=== PATIENT | female | born 1995 | race Caucasian/White ===

== ENCOUNTER 2019-06-09 06:37 | Day surgery (SDC) | payer BC, OTHER ==
[2019-06-07 18:00] VITALS: BMI 39.7
--- NOTE | 2019-06-08 13:00 | HP ---
Satellite [facility] - Chief Complaint Chief Complaint: right knee pain/instability - Past Medical History Allergies/Adverse Reactions: Allergies Allergy/AdvReac Type Severity Reaction Status Date / Time aspirin Allergy Severe Swelling Verified 06/07/19 17:53 red dye Allergy Verified 06/07/19 17:53 ...LMP: 06/04/19 - Current Medications Current Medications: Home Medications Medication Instructions Recorded Control PO DAILY 06/07/19 Metformin HCl [Glucophage] 500 mg PO BID 06/07/19 Satellite Physical Exam - Physical Examination General Appearance: Well Nourished, Well Developed, Alert & Oriented x3 ENT: Clear Lung: Normal air movement Extremities: Other (right knee- + ttp, decr rom, + sole, + ant draw, + pivot , nvi, MRI +ACL tear, MMT) Neurological: Intact, Alert, Oriented Satellite Impression/Plan - Impression/Plan Impression: right knee acl tear, MMT Operative Procedure: right knee arthroscopy with ACL reconstruction using allograft, PM Date to be Performed: 06/08/19
[2019-06-09] MEDS ORDERED: PROPOFOL 20 ML ONE ×2 (07:20→08:20)
[2019-06-09] MEDS ORDERED: MIDAZOLAM HCL 2 MG/2 ML SINGLE DOSE VIAL ONE ×2 (07:27→07:28)
[2019-06-09] MEDS ORDERED: BUPIVACAINE HCL/PF 0.25% (2.5MG/ML) 10 ML VIAL ONE (07:29)
[2019-06-09] MEDS ORDERED: LIDOCAINE HCL/PF 2% SDV 5ML VIAL ONE (07:33)
[2019-06-09] MEDS ORDERED: BUPIVACAINE HCL/PF 0.5% (5 MG/ML) 30 ML VIAL IJ ONE (07:36)
[2019-06-09] MEDS ORDERED: ceFAZolin SODIUM 1 GM VIAL IVPB ONE (08:20)
[2019-06-09] MEDS ORDERED: ceFAZolin SODIUM 1 GM VIAL ONE (08:27)
[2019-06-09] MEDS ORDERED: DEXAMETHASONE SOD PHOSPHATE 4 MG/1 ML VIAL ONE (08:58)
[2019-06-09] MEDS ORDERED: ONDANSETRON 4 MG/2 ML VIAL IVPUSH PRN (09:07)
[2019-06-09] MEDS ORDERED: oxyCODONE HCL 5 MG TABLET PO PRN ×2 (09:07)
[2019-06-09] MEDS ORDERED: LACTATED RINGERS SOLUTION 1,000 ML IV SCH (09:15)
--- NOTE | 2019-06-09 09:33 | OP ---
Operative Note - Note: Operative Date: 06/09/19 ([facility]) Pre-Operative Diagnosis: right knee internal derangement Operation: right knee arthroscopy with ACL reconstruction using MOISE rosa Post-Operative Diagnosis: Same as Pre-op Surgeon: Jim Kenney Facilities Director: Fausto Pineda Anesthesiologist/EXPELLER OPERATOR: Dank Velásquez Anesthesia: General, Local Specimens Removed: shavings Estimated Blood Loss (mls): 5
[2019-06-09] MEDS ORDERED: oxyCODONE HCL 5 MG TABLET PO ONE (12:05)
[2019-06-09] MEDS ORDERED: oxyCODONE HCL 5 MG TABLET ONE (12:05)
[2019-06-09 12:19] VITALS: TEMP 97.9
[2019-06-09 14:32] VITALS: BP 126/69; PULSE 80
--- NOTE | 2019-06-09 18:58 | OP ---
DATE OF OPERATION: DATE OF DICTATION: 06/09/2019 PREOPERATIVE DIAGNOSIS: Right anterior cruciate ligament tear and medial meniscus tear. POSTOPERATIVE DIAGNOSIS: Right anterior cruciate ligament tear and medial meniscus tear. PROCEDURE: Right anterior cruciate ligament reconstruction with GraftLink allograft and partial medial meniscectomy. SURGICAL ATTENDING: Jim Kenney MD PROVIDER NETWORK MGR: SADIE Subramanian ANESTHESIA: Regional and general. CLOSURE: A GraftLink for ACL, 3-0 nylon for skin. ESTIMATED BLOOD LOSS: Negligible. COMPLICATIONS: None. CONDITION: To recovery in stable condition. DESCRIPTION OF OPERATIVE PROCEDURE: Patient taken to the operating room on June 09, 2019. Regional and general anesthesia was administered by the anesthesiologist. IV Kefzol was administered prophylactically prior to the case. Right lower extremity was prepped and draped in the usual sterile fashion. The superolateral, medial, and infrapatellar portal sites were made with 15-blade followed by blunt trocar. Outflow portal was supermedially, and the working portal was inferomedially, and the scope portal was inferolaterally. The patella was visualized to be clean, the medial gutters visualized to be clean visualized to be intact. With valgus stress on the knee, the medial compartment was entered and the medial meniscus was found to have a complex tear of the medial displaced anteriorly with 2 flaps both anterior and posterior. Knee was debrided using biters and a shaver. The residual meniscus was bound and smoothened. The medial femoral condyle was run and found to be intact as was the medial tibial plateau. In the figure of 4 position, the lateral compartment was entered. The lateral meniscus was visualized and probed and found to be intact. The lateral femoral condyle was run and found to be intact as was the lateral tibial plateau. At 90 degrees, the ACL was visualized to be completely deficient. PCL was intact. A sufficient notchplasty was then performed, gaining sufficient width and height to perform the procedure, and bone fragments were debrided using the shaver. While this was being done, the graft was being prepared on the back table with the appropriate markings to allow the graft and application of the button for the GraftLink. The scope was switched to the inferomedial portal. The [id number] guide was placed through the inferolateral portal and it was malleted down to the bone on the anterolateral femoral condyle, went through a small stab incision. A Flipcutter was then drilled into the appropriate aspect of the posterior notch and was then flipped and retrograde drilling was performed to 10-mm tunnel to the appropriate depth. All bone fragments were debrided. A suture stick was then placed down the hole and retrieved through the portal and clamped with self for later use. The scope was switched then to the inferolateral portal; using the tibial guide a Flipcutter was drilled just anterior to the PCL and was flipped and then retrograde drilling of a 10-mm tunnel was performed. Again, all bone fragments were debrided using the shaver. The outer cortex was left intact. A suture stick was then placed down the tunnel and retrieved in the knee and exited the portal. At this point, the graft was looped through the two shuttle sutures, one in the femur and one in the tibia, and pulled. It was first pulled up into the femoral tunnel. The button was flipped and felt to engage the outer femoral cortex. The toggle sutures were then used to pull the graft up into the femoral tunnel to the desired depth based on the markings on the graft. The shuttle suture was then used to pull the tibial side of the graft into the tibial tunnel. The button was then deployed through a small stab incision and toggled until the desired tension was obtained on the tibial side as well. Both sides were then toggled in Unasyn to take out the looseness of the graft to get the desired tension in the graft. The knee was taken through a range of motion and found to go from full extension to full flexion with no impingement on the notch throughout the range of motion. The patient had a negative anterior posterior drawer, negative Ced, and negative pivot shift at the end of the procedure. The traction sutures were cut. The skin portals were closed with 3-0 nylon. A sterile pressure dressing followed by knee immobilizer was applied. Patient awakened from anesthesia and transferred to recovery in stable condition. No complications. Estimated blood loss negligible. Tia [id number]
--- NOTE | 2019-06-10 17:15 | PATH ---
Surgical Pathology Report Patient Name: OREN DUARTE [facility]. Rec. #: [id number] /Age/Gender: 1995 (Age: 23) / F Account: [id number] Location: [facility] SURGICAL Taken: 06/09/2019 Received: 06/09/2019 Reported: 06/10/2019 Physicians: Jim Kenney M.D. Specimen(s) Received RIGHT KNEE SHAVINGS Clinical History Right ACL tear Final Diagnosis KNEE SHAVINGS, RIGHT, ARTHROSCOPY AND ACL RECONSTRUCTION: FRAGMENTS OF CARTILAGE, BONE, DENSE FIBROCONNECTIVE TISSUE, ADIPOSE TISSUE, AND SYNOVIUM. Electronically Signed Enid Winters M.D. Gross Description Received in formalin, labeled "right knee shavings," is a 5.5 x 4.5 x 0.9 cm. aggregate of macias-yellow soft tissue fragments. A rental representative portion is submitted in one cassette. 06/09/201906/09/2019
== END 2019-06-09 14:10 | disposition home or self-care (01) ==
LOC: JASU-SURG 06:37
PROVIDERS: ATTEND Orthopaedic Surgery
PROC: 0MSN4ZZ Reposition Right Knee Bursa and Ligament, Percutaneous Endoscopic Approach (ICD-10-PCS; 2019-06-09)
PROC: 0SBC4ZZ Excision of Right Knee Joint, Percutaneous Endoscopic Approach (ICD-10-PCS; principal; 2019-06-09 08:00)
DX: S83.511A Sprain of anterior cruciate ligament of right knee, initial encounter (principal); S83.241A Other tear of medial meniscus, current injury, right knee, initial encounter; X58.XXXA Exposure to other specified factors, initial encounter; Y93.9 Activity, unspecified; Y92.9 Unspecified place or not applicable; Y99.9 Unspecified external cause status
CPT/HCPCS: 29881; 29888; C1713; 84703; 94760